=== PATIENT | female | born 1950 | race Caucasian/White ===

== ENCOUNTER 2017-02-08 11:19 | Inpatient (IN) | payer MEDICARE ==
[~2017-02-08] VITALS: Ht 165.1 cm; Wt 91.3 kg
[~2017-02-08 11:19] MED LIST: ALBUTEROL2 PUFFS/17 IN; BACTRIM DS 8001 TAB PO; CEPHALEXIN500 MG PO; EPI-PEN1 MG/ML MR; FLEXERIL10 MG PO; HYDROCODONE1 TABLET PO; LEVOFLOXACIN 5500 M1 PO; LISINOPRIL 20MG20 MG PO; LISINOPRIL HCTZ1 TAB; MEDROL 4MG. DOSE4 MG PO; METHYLPRED DP4 MG PO; OXYCODONE HCL15 MG PO; OXYCODONE HCL30 MG PO; PHENERGAN 25MG.25 M1 PO; PRILOSEC20 MG PO; PYRIDIUM 200MG200 MG PO; RANITIDINE HCL150 MG PO; SINGULAIR 10 MG10 MG PO; XANAX1 M1 PO; ZITHROMAX Z PA250 MG PO
[2017-02-08 12:12] VITALS: BP 128/64
[2017-02-08] MEDS ORDERED: SIMVASTATIN10 MG PO (12:29)
[2017-02-08] MEDS ORDERED: MONTELUKAST SOD10 MG PO (12:29)
[2017-02-08] MEDS ORDERED: HYDROCHLOROTH12.5 M1 PO (12:30)
[2017-02-08] MEDS ORDERED: VITAMIN D50000 I1 PO (12:30)
[2017-02-08 12:39] LABS: BUN 26 mg/dL (7-18); GFR (ESTIMATED) 45 ML/MIN (59-)
[2017-02-08 12:57] LABS: HEMOGLOBIN 16.4 g/dL (12.2-16.2)
[2017-02-08 12:59] VITALS: BP 133/83
--- NOTE | 2017-02-08 14:29 | RADIOLOGY REPORT PS360 ---
. CHEST(2 VIEWS-NOT PORTABLE) Ordering physician: Alexei Montiel MD Age: 66 years Female INDICATION: chest symptomsR/O PNEUMONIA PROCEDURE: CHEST(2 VIEWS-NOT PORTABLE) FINDINGS previous chest film 02/28/2016 as comparison. Also November 2014 CXR used as compariso There is been no significant interval change since prior chest films . No discrete acute findings. No focal pneumonia. We again see linear areas of scarring at both the right mid and left mid chest Lungs well expanded and clear with nothing definitely acute. No pneumothorax. No pleural effusion. Heart normal size. Normal pulmonary vascularity. Hilar and mediastinal structures appear satisfactory. Chest wall unremarkable. Levoscoliosis lower sent report T-spine again noted. IMPRESSION ----- stable chest. Nothing definite acute at chest
[2017-02-08 16:00] VITALS: BP 111/81
--- NOTE | 2017-02-08 16:43 | HISTORY AND PHYSICAL REPORT ---
Demographics: Admit date: 02/08/17 Chief complaint: Shortness of breath PRIMARY DIAGNOSIS: PNEUMONIA/INFLUENZA Allergies: Coded Allergies: Mushroom (From MUSHROOMS (FOOD/DRUG)) (Mild, NA-NAUSEA/VOMITING 03/04/16) mushroom (From MUSHROOMS (FOOD/DRUG)) (Mild, NA-NAUSEA/VOMITING 03/04/16) History of present illness: History of present illness: 66-year-old female seen in the office on February 03 and diagnosed with influenza B in pneumonia treated with Levaquin, and steroids return to the office today with increasing weakness, shortness of breath, cough with productive green sputum and persistent fevers as high as 102 degrees. In the office patient looked weekend and exam supported mild dehydration with worsening respiratory status. In the office patient had diffuse bilateral rhonchi with wheezing. While patient maintained her O2 sats in the mid 90s on room air she was significantly weak and because of failed outpatient treatment has been admitted. Patient will be placed on IV fluids, IV steroids, IV antibiotics and additional tests have been ordered. Subsequently her chest x-ray shows no acute infiltrate and respiratory swab confirmed influenza type B. Past medical history: Family HX Family Hx Insignificant No Diabetes No CAD Yes Hypertension Yes Hyperlipidemia No Cancer Yes TB No Immunization HX DT/Tetanus 1-4 YRS Pneumonia Received In Past TB Test in last year No General CAD? Yes Angina: No MA: No Hypertension? Yes Hyperlipidemia? Yes CHF? No COPD? No Asthma? Yes Anemia? No Hernia? No Thyroid Problems? Yes CVA? No Seizures? No Diabetes? No UTI? Yes Stones? No GB Disease: Yes Nephritic Syndrome? No Asplenia? No Hepatitis? No Arthritis? Yes Cataracts? No Glaucoma? No MRSA? No TB? No Cancer? 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 No Patient's support system is fair Review of systems: Constitutional weakness. Respiratory see HPI. Cardiovascular no symptoms reported Gastrointestinal/Abdominal no symptoms reported Genitourinary no symptoms reported. Musculoskeletal no symptoms reported. Neurological Yes: no symptoms reported. Exam: Lab data for last 24 hours: Laboratory Tests 02/08/17 1210: Mycoplasma pneumon IgM NON-REACTIVE 02/08/17 1210: Sodium 136, Potassium 2.9 *L, Chloride 99, Carbon Dioxide 28, BUN 26 H, Creatinine 1.2 H, Estimated GFR (MDRD) 45 L, Glucose 103, Calcium 9.0, WBC 5.6 , RBC 5.11, Hgb 16.4 H, Hct 47.4 H, MCV 92.8, RDW 12.8, Plt Count 158, MPV 7.2 L, Gran % 55.8, Gran # 3.1, Lymphocytes % 36.0, Monocytes % 7.7, Eosinophils % 0.2, Basophils % 0.4, Lymphocytes # 2.0, Monocytes # 0.4, Eosinophils # 0.0, Basophils # 0.0, PUBS MCHC 34.3, MCH 31.8 H, Influenza Type A Ag NOT DETECTED, Influenza Type B Ag DETECTED H Microbiology 02/08 1210 BLOOD: Anaerobic Blood Culture - RECD 02/08 1210 BLOOD: Aerobic Blood Culture - RECD 02/08 1210 BLOOD: Anaerobic Blood Culture - RECD 02/08 1210 BLOOD: Aerobic Blood Culture - RECD Admission vital signs: 1ST Vital Signs Result Date Time Pulse Ox 92 02/08 1212 O2 Delivery ROOM AIR 02/08 1212 B/P 128/64 02/08 1212 Temp 98.2 02/08 1212 Pulse 78 02/08 1212 Resp 22 02/08 1212 O2 Flow Rate 2 02/08 1255 Additional information: At present patient looks slightly improved than when she was seen in the office. She is less tachypneic. HEENT exam is normal. Lungs have diffuse expiratory wheezes with bilateral rhonchi that improve slightly with cough. Heart has a regular rate and rhythm. Abdomen is soft. Patient can move all extremities and her neurologic exam does not reveal any deficits. Plan: Problem List 1. Influenza B 2. Influenzal bronchiolitis Plan: 1. Rehydrate with intravenous fluids 2. Tamiflu 75 mg twice a day 3. Patient's been admitted under pneumonia protocol and placed on cefepime and Levaquin to cover possibility of pseudomonas. Patient does have purulent sputum and sputum culture has been ordered. at 1649
[2017-02-08 19:37] VITALS: BP 111/72; BP 111/81
[2017-02-08 21:04] VITALS: BP 111/72
--- NOTE | 2017-02-08 21:52 | PHARMACY CLINIC NOTE ---
Patient Demographics Patient Demographics Admission date: 02/08/17 Date: 02/08/17 Time: 2150 Allergies Coded Allergies: Mushroom (From MUSHROOMS (FOOD/DRUG)) (Mild, NA-NAUSEA/VOMITING 03/04/16) mushroom (From MUSHROOMS (FOOD/DRUG)) (Mild, NA-NAUSEA/VOMITING 03/04/16) HEIGHT- FT: 5 IN: 5.00 K.055 VTE General Information Labs: Laboratory Tests 02/08 1210 Hematology Hgb (12.2 - 16.2 g/dL) 16.4 H Hct (37.0 - 47.0 %) 47.4 H Plt Count (142 - 424 K/mm3) 158 Disclaimer The following section includes nursing documentation that has been pulled in for pharmacy review. Patient's VTE score: 2 Patient's VTE Risk: VERY LOW RISK Clinical trial participant? No VTE prophylaxis NQF [id number] VTE prophylaxis ordered? Yes Type of prophylaxis/treatment: [place] at 2151
[2017-02-09] VITALS (8 sets, daily range): BP systolic 109–149; BP diastolic 58–78
[2017-02-09 07:04] LABS: HEMOGLOBIN 15.2 g/dL (12.2-16.2); LYMPH # 1.3 K/mm3 (0.7-4.5); LYMPH % 40.7 % (10-50.0)
--- NOTE | 2017-02-09 07:20 | ACUTE CARE PROGRESS NOTE (QUA) ---
Progress Notes Subjective Date 02/09/17 Time 0719 Note Patient states she's feeling better this morning. Her night was restless. She looks more comfortable. Lung exam reveals diffuse wheezes and rales at the LEFT lung base. Aeration is better today. Heart has regular rate and rhythm. Repeat chest x-ray. Continue antibiotics for coverage of pseudomonas. Continue Tamiflu. Continue steroids. Objective Findings Last VS-Temp:97.5 B/P:109/76 Pulse:56 Resp:18 SaO2:96 OXYGEN Last weight lbs:194 oz:2 K.055 Method:Bed Scales Laboratory Tests 02/09/17 0635: WBC 3.3 L, RBC 4.75, Hgb 15.2, Hct 45.7, MCV 96.1, RDW 12.8, Plt Count 132 L, MPV 7.1 L, Gran % 56.6, Gran # 1.9, Lymphocytes % 40.7, Monocytes % 1.9, Eosinophils % 0.5, Basophils % 0.3, Lymphocytes # 1.3, Monocytes # 0.1, Eosinophils # 0.0, Basophils # 0.0, PUBS MCHC 33.2, MCH 31.9 H 02/08/17 1210: Mycoplasma pneumon IgM NON-REACTIVE 02/08/17 1210: Sodium 136, Potassium 2.9 *L, Chloride 99, Carbon Dioxide 28, BUN 26 H, Creatinine 1.2 H, Estimated GFR (MDRD) 45 L, Glucose 103, Calcium 9.0, WBC 5.6 , RBC 5.11, Hgb 16.4 H, Hct 47.4 H, MCV 92.8, RDW 12.8, Plt Count 158, MPV 7.2 L, Gran % 55.8, Gran # 3.1, Lymphocytes % 36.0, Monocytes % 7.7, Eosinophils % 0.2, Basophils % 0.4, Lymphocytes # 2.0, Monocytes # 0.4, Eosinophils # 0.0, Basophils # 0.0, PUBS MCHC 34.3, MCH 31.8 H, Influenza Type A Ag NOT DETECTED, Influenza Type B Ag DETECTED H Microbiology 02/08 1210 BLOOD: Anaerobic Blood Culture - RECD 02/08 1210 BLOOD: Aerobic Blood Culture - RECD 02/08 1210 BLOOD: Anaerobic Blood Culture - RECD 04/17 1210 BLOOD: Aerobic Blood Culture - RECD Assessment/Plan Problem List 1. Influenza B 2. Influenzal bronchiolitis Patient condition Improving Plan: continue current care This inpt stay is expected to cross 2 MNs from start of care Yes at 0720
[2017-02-09] MEDS ORDERED: PREDNISONE 20MG20 MG PO (09:38)
--- NOTE | 2017-02-09 09:38 | RADIOLOGY REPORT PS360 ---
CHEST(2 VIEWS-NOT PORTABLE) HISTORY: Cough repeat film after being hydrated, cough, r/o pneumonia ORDERING PHYSICIAN: Alexei Montiel MD PATIENT AGE: 66 years COMPARISON: 02/08/2017 FINDINGS: The cardiomediastinal silhouette and pulmonary vascularity are within normal limits. Fibrotic changes are present in both perihilar regions. No lobar consolidation or collapse. No effusions or infiltrates.. No acute bony abnormalities. IMPRESSION: Chronic changes, no change with no acute finding
[2017-02-09] MEDS ORDERED: PROMETHAZINE D473 ML PO (09:40)
[2017-02-10] VITALS (9 sets, daily range): BP systolic 102–150; BP diastolic 52–81
--- NOTE | 2017-02-10 07:05 | ACUTE CARE PROGRESS NOTE (QUA) ---
Progress Notes Subjective Date 02/10/17 Time 0702 Note Patient tells me this morning she is feeling slightly better although still quite weak and significantly dyspneic with exertion. She was able to sit in a chair for 3 hours yesterday. Patient was "worn out after taking a shower". She looks more comfortable. She still looks weak. Lung exam reveals faint expiratory wheezes. Improvement in rhonchi. Diffuse bibasilar crackles. Heart has a regular rate and rhythm. Continue current care for her influenza type B with bronchiolitis. Encouraged patient to ambulate. Recommended use of oxygen at night. Since her repeat chest x-ray was negative for any infiltrate I will discontinue her antibiotics Objective Findings Last VS-Temp:97.7 B/P:106/62 Pulse:66 Resp:18 SaO2:98 OXYGEN Last weight lbs:194 oz:1 K.025 Method:Bed Scales Assessment/Plan Problem List 1. Influenza B 2. Influenzal bronchiolitis Patient condition improving slowly Plan: continue current care This inpt stay is expected to cross 2 MNs from start of care Yes Antibiotic Stewardship (2) Current Culture Results Microbiology 02/08 1210 BLOOD: Anaerobic Blood Culture - RECD 02/08 1210 BLOOD: Aerobic Blood Culture - RECD Infxn that will respond? No Right drug,dose,and route? No More targeted antbx? No at 0704
[2017-02-10 20:27] LABS: URINE BILIRUBIN - DIPSTICK NEGATIVE (NEG); URINE BLOOD NEGATIVE (NEG)
[2017-02-11 03:53] VITALS: BP 102/52
--- NOTE | 2017-02-11 07:14 | ACUTE CARE PROGRESS NOTE (QUA) ---
Progress Notes Subjective Date 02/11/17 Time 0712 Note Patient once again complains of a restless night. She was able to give herself a shower yesterday which LEFT her quite short of breath. Cough continues to have scant sputum production. Currently she is sitting in bed and appears comfortable. In no distress. She looks a little better today than yesterday. Her lung exam continues to have expiratory wheezes which are present are more audible today than yesterday. Dry basilar crackles are present. Heart has regular rate and rhythm. Patient is slowly improving. Continue current medications. When I transitioned to oral steroids today. PT eval as well for post discharge needs Objective Findings Last VS-Temp:97.6 B/P:102/52 Pulse:63 Resp:22 SaO2:95 OXYGEN Last weight lbs:200 oz:4 K.832 Method:Bed Scales Assessment/Plan Problem List 1. Influenza B 2. Influenzal bronchiolitis Patient condition slowly improving Plan: continue current care, make medication changes This inpt stay is expected to cross 2 MNs from start of care Yes Antibiotic Stewardship (2) Infxn that will respond? No Right drug,dose,and route? No More targeted antbx? No at 0714
[2017-02-11 08:10] VITALS: BP 115/67
[2017-02-11 09:12] VITALS: BP 115/67
[2017-02-11 12:19] VITALS: BP 131/58
[2017-02-11 16:47] VITALS: BP 132/71
[2017-02-11 20:21] VITALS: BP 114/60
[2017-02-12 00:11] VITALS: BP 111/58
[2017-02-12 04:43] VITALS: BP 128/70
[2017-02-12] MEDS ORDERED: PREDNISONE20 MG PO (06:55)
[2017-02-12] MEDS ORDERED: XANAX1 M1 PO (06:56)
[2017-02-12] MEDS ORDERED: TAMIFLU 75MG CA75 MG PO (06:56)
[2017-02-12] MEDS ORDERED: ALBUTEROL-1 PUFF/14. IN (07:09)
--- NOTE | 2017-02-12 07:12 | ACUTE CARE PROGRESS NOTE (QUA) ---
Progress Notes Subjective Date 02/12/17 Time 0710 Note Patient complains of not sleeping well overnight. She tried to remain as active as possible throughout the day yesterday. She was able to bathe herself and set up in the chair for most of the day. She continues to have cough with scant sputum production. She has not had any fevers. She did not require use of oxygen for dyspnea with exertion. She is in no distress. Oropharynx is moist and clear. Heart has regular rate and rhythm. Lungs have mixed rhonchi with faint end expiratory wheezes. Wheezes have improved since yesterday. Patient continues to slowly improve from her influenza type B with bronchiolitis. She will be discharged home today. She will finish a course of Tamiflu tomorrow, continue prednisone. She will use Combivent 4 times a day. She will follow-up in my office in 4 days Objective Findings Last VS-Temp:97.3 B/P:128/70 Pulse:55 Resp:20 SaO2:95 OXYGEN Last weight lbs:201 oz:6 K.342 Method:Bed Scales Reviewed: medications, vital signs, lab results, nursing notes Assessment/Plan Problem List 1. Influenza B 2. Influenzal bronchiolitis Patient condition Improving Plan: initiate discharge plan This inpt stay is expected to cross 2 MNs from start of care Yes Antibiotic Stewardship (2) Infxn that will respond? No Right drug,dose,and route? No More targeted antbx? No at 0712
--- NOTE | 2017-02-12 07:15 | Discharge Summary ---
Demographics Admit date: 02/08/17 Discharge date: 02/12/17 Discharge diagnoses Problem List 1. Influenza B 2. Influenzal bronchiolitis History of present illness History of present illness 66-year-old female seen in the office on February 03 and diagnosed with influenza B in pneumonia treated with Levaquin, and steroids return to the office today with increasing weakness, shortness of breath, cough with productive green sputum and persistent fevers as high as 102 degrees. In the office patient looked weekend and exam supported mild dehydration with worsening respiratory status. In the office patient had diffuse bilateral rhonchi with wheezing. While patient maintained her O2 sats in the mid 90s on room air she was significantly weak and because of failed outpatient treatment has been admitted. Patient will be placed on IV fluids, IV steroids, IV antibiotics and additional tests have been ordered. Subsequently her chest x-ray shows no acute infiltrate and respiratory swab confirmed influenza type B. Patient was admitted and placed on cefepime and Levaquin to cover possibility of Pseudomonas while sputum and blood cultures were pending. Patient could not produce any significant sputum once admitted. Later cultures revealed no growth after 48 hours. Patient remained significantly wheezy or out most of her hospitalization with profound weakness and dyspnea on exertion. By the the patient started to show signs of slow improvement with the ability to ambulate on her own in the room and began bathing herself. She continued to use oxygen throughout the day to relieve dyspnea despite the fact that her lowest recorded oxygen saturation was 90 percent. On the evening of the and the morning of the patient's appetite began to improve. On the she had more significant wheezing than the prior day. Patient was transitioned to oral prednisone and continued on aerosols every 6 hours. On the patient's wheezing had improved although was still present. Patient's rhonchi had improved. Patient's aeration had improved. Patient was deemed well enough to be discharged from the hospital and will follow-up in 4 days as an outpatient. She will finish her course of Tamiflu which was started in the hospital. She will be prescribed Combivent and prednisone as an outpatient. Medications Medications: Discharge meds are as noted. Follow up Follow up in office in: 4 DAYS with: Alexei Montiel MD at 0715
[2017-02-12 07:50] VITALS: BP 109/73
[2017-02-12 08:07] VITALS: BP 109/73
[2017-02-12 12:46] VITALS: BP 109/73
== END 2017-02-12 11:50 | disposition home or self-care (01) | DRG 195 ==
LOC: 2ND 11:19
PROVIDERS: Family Medicine
DX: J10.1 Influenza due to other identified influenza virus with other respiratory manifestations (principal); I10 Essential (primary) hypertension

== ENCOUNTER → 2017-04-19 | Outpatient (CLI) | payer MEDICARE ==
[~2017-04-19] MED LIST changes: +ALBUTEROL-1 PUFF/14. IN; +HYDROCHLOROTH12.5 M1 PO; +MONTELUKAST SOD10 MG PO; +PREDNISONE 20MG20 MG PO; +PREDNISONE20 MG PO; +PROMETHAZINE D473 ML PO; +SIMVASTATIN10 MG PO; +TAMIFLU 75MG CA75 MG PO; +VITAMIN D50000 I1 PO
--- NOTE | 2017-04-19 11:30 | RADIOLOGY REPORT PS360 ---
EXAM: LUMBAR SPINE 5 VIEWS HISTORY: LOW BACK PAIN ORDERING PHYSICIAN: Alexei Montiel MD PATIENT AGE: 66 years COMPARISON: None FINDINGS: Mild dextroscoliosis. Degenerative disc disease L4-L5 and L5-S1 and L1-L2. Facet arthritic changes are present at L4-5 and L5-S1. No fracture or dislocation. No lytic or blastic change. Incidental vascular calcification. IMPRESSION: Spondylosis of the lumbar spine with degenerative disc disease and facet arthritic change and mild dextroscoliosis
== END ==
LOC: RAD 09:33
DX: M54.5 Low back pain (principal)

== ENCOUNTER → 2017-07-12 | Outpatient (CLI) | payer MEDICARE ==
[2017-07-13 08:45] LABS: Immunoglobulin A, Qn 246 mg/dL (87-352); Immunoglobulin G, Qn 814 mg/dL (700-1600); Immunoglobulin M, Qn 68 mg/dL (26-217)
[2017-07-13 10:40] LABS: Immunoglobulin E, Total 26 IU/mL (0-100)
== END ==
LOC: LAB 14:08
PROVIDERS: Internal Medicine
DX: R06.09 Other forms of dyspnea (principal); R05 Cough; J30.9 Allergic rhinitis, unspecified; Z20.1 Contact with and (suspected) exposure to tuberculosis; Z87.01 Personal history of pneumonia (recurrent)

== ENCOUNTER → 2017-09-29 | Outpatient (CLI) | payer MEDICARE ==
--- NOTE | 2017-10-01 11:19 | RADIOLOGY REPORT PS360 ---
US THYROID HISTORY: Follow-up thyroid nodules GOITER ORDERING PHYSICIAN: Bruno Gudino MD PATIENT AGE: 67 years COMPARISON: 03/16/2017 FINDINGS: The right lobe is 3.6 x 1 x 1.2 cm. There is a 7 x 5 mm slightly hyperechoic nodule along the lower pole on the right unchanged. The left lobe measures 3.6 x 1.1 x 1.2 cm. There is a 3 mm hypoechoic area in the mid aspect of the left lobe unchanged. No new nodules are evident IMPRESSION: Stable appearance of the thyroid gland. There is a hyperechoic nodule along the lower pole on the right which could represent small lymph node and a stable small cystic area on the left
== END ==
LOC: LAB 13:39 → RAD 13:39
DX: E04.9 Nontoxic goiter, unspecified (principal)